=== PATIENT | female | born 1960 | race Caucasian/White ===

== ENCOUNTER → 2017-09-03 | Outpatient (CLI) | payer OTHER ==
[~2017-09-03] MED LIST: LEVO25TA2 PO; PARO7.5C PO; THYR15TA PO; THYR30TA PO
[2017-09-03 13:48] LABS: BASOPHILS # (AUTO) 0.02 x10^3/uL (0-0.1); BASOPHILS % (AUTO) 0 % (0-1); EOSINOPHILS % (AUTO) 3 % (1-7); LYMPHOCYTES # (AUTO) 2.67 x10^3/uL (1-3.4); LYMPHOCYTES % (AUTO) 39 % (22-44); MD NO; MEAN CORPUSCULAR HEMOGLOBIN 30.1 pg (27.0-34.8); MEAN CORPUSCULAR HGB CONC 34.8 g/dL (32.4-35.8); MEAN CORPUSCULAR VOLUME 86.7 fL (80-100); MEAN PLATELET VOLUME 8.3 fL (7.4-10.4); MONOCYTES # (AUTO) 0.52 x10^3/uL (0.2-0.8); MONOCYTES % (AUTO) 8 % (2-9); NEUTROPHILS # (AUTO) 3.38 x10^3/uL (1.8-6.8); NEUTROPHILS % (AUTO) 50 % (42-75); PLATELET COUNT 351 x10^3/uL (130-400); RED BLOOD COUNT 5.26 x10^6/uL (3.82-5.3); RED CELL DISTRIBUTION WIDTH 12.9 % (9.6-15.2)
[2017-09-03 13:59] LABS: ANION GAP 10 mmol/L (5-15); CALCIUM 8.3 mg/dL (8.5-10.1); CHLORIDE 106 mmol/L (98-107)
[2017-09-03 14:00] LABS: CREATININE 0.94 mg/dL (0.55-1.02)
== END | disposition home or self-care (01) ==
LOC: STAR 12:49
PROVIDERS: ATTEND Otolaryngology Facial Plastic Surgery
DX: Z01.818 Encounter for other preprocedural examination (principal); R22.9 Localized swelling, mass and lump, unspecified
CPT/HCPCS: 36415; 71046; 80048; 85025; 93005

== ENCOUNTER 2017-09-07 05:33 | Day surgery (SDC) | payer OTHER ==
[~2017-09-07] VITALS: Ht 160 cm; Wt 68.8 kg
[2017-09-07] MEDS ORDERED: LACTATED RINGERS 1,000 ML IV SCH (06:05)
[2017-09-07] MEDS ORDERED: EPINEPHRINE TOPICAL SOLN 1 MG/ML, 30ML ONE (06:12)
[2017-09-07] MEDS ORDERED: LIDOCAINE GEL 2%, 5ML ONE (06:12)
[2017-09-07] MEDS ORDERED: FENTANYL PF 100 MCG/2ML ONE ×2 (07:05→08:52)
[2017-09-07] MEDS ORDERED: MIDAZOLAM 1 MG/ML, 2ML ONE (07:05)
[2017-09-07] MEDS ORDERED: SCOPOLAMINE PATCH, 1.5MG PATCH.TD72 TD ONE ×2 (07:22)
[2017-09-07] MEDS ORDERED: PROPOFOL 50 ML ONE (07:27)
[2017-09-07] MEDS ORDERED: ROCURONIUM 10 MG/ML,10ML ONE (07:41)
[2017-09-07] MEDS ORDERED: SUCCINYLCHOLINE 20 MG/ML, 10ML ONE (07:41)
[2017-09-07] MEDS ORDERED: KETOROLAC 30 MG/1 ML ONE (07:41)
[2017-09-07] MEDS ORDERED: DEXAMETHASONE 4 MG/ML, 1ML ONE (07:41)
[2017-09-07] MEDS ORDERED: PROPOFOL 10 MG/ML, 20ML ONE (07:41)
[2017-09-07] MEDS ORDERED: ONDANSETRON 2MG/ML, 2ML ONE (07:41)
[2017-09-07] MEDS ORDERED: LABETALOL 5MG/ML, 20ML IV PRN (08:00)
[2017-09-07] MEDS ORDERED: METOPROLOL 1 MG/ML, 5ML IV PRN (08:00)
[2017-09-07] MEDS ORDERED: OXYcodone 5 MG/5 ML ORAL.SOL UDC PO PRN (08:00)
[2017-09-07] MEDS ORDERED: MEPERIDINE/PF 25MG/0.5ML IVPush PRN (08:00)
[2017-09-07] MEDS ORDERED: PROMETHAZINE 25 MG/ML, 1ML IV PRN (08:00)
[2017-09-07] MEDS ORDERED: hydrALAzine 20 MG/ML, 1ML IV PRN (08:00)
[2017-09-07] MEDS ORDERED: EPHEDRINE 50 MG/ML, 1ML IVPush PRN (08:00)
[2017-09-07] MEDS ORDERED: DIAZEPAM 5 MG/ML, 2ML IVPush PRN (08:00)
[2017-09-07] MEDS ORDERED: ACETAMINOPHEN 325 MG TABLET PO PRN (08:00)
[2017-09-07] MEDS ORDERED: ALBUTEROL SULFATE 2.5 MG/3 ML NPPB PRN (08:00)
[2017-09-07] MEDS ORDERED: ONDANSETRON 2MG/ML, 2ML IVPush PRN (08:00)
[2017-09-07] MEDS ORDERED: MIDAZOLAM 1 MG/ML, 2ML IV PRN (08:00)
[2017-09-07] MEDS ORDERED: HYDROcodone/APAP 7.5-325MG/15ML UDC PO PRN (08:00)
[2017-09-07] MEDS ORDERED: HYDROmorphone 1 MG/ML, 1ML IV PRN (08:00)
[2017-09-07] MEDS ORDERED: ACETAMINOPHEN 650 MG/20.3 ML UDC ONE (08:52)
[2017-09-07] MEDS ORDERED: OXYcodone 5 MG/5 ML ORAL.SOL UDC ONE (08:53)
[2017-09-07] MEDS: FENTANYL PF 100 MCG/2ML IV PRN ×3 (08:58→09:14)
== END 2017-09-07 11:40 ==
LOC: OUT 05:33
PROVIDERS: ATTEND Otolaryngology Facial Plastic Surgery
DX: K14.9 Disease of tongue, unspecified (principal); K21.9 Gastro-esophageal reflux disease without esophagitis; E03.9 Hypothyroidism, unspecified; Z88.8 Allergy status to other drugs, medicaments and biological substances; Z85.850 Personal history of malignant neoplasm of thyroid
CPT/HCPCS: 31536; 88305; 88331; J0330; J1100; J1885; J2250; J2405; J2704; J3010; J7120

== ENCOUNTER → 2018-05-07 | Outpatient (CLI) | payer OTHER ==
[~2018-05-07] MED LIST changes: +OMNIPAQUE 350 MG/ML, 100ML BOTTLE ONE
== END | disposition home or self-care (01) ==
LOC: CFH 09:21
PROVIDERS: ATTEND Otolaryngology Facial Plastic Surgery
DX: R59.0 Localized enlarged lymph nodes (principal); J34.1 Cyst and mucocele of nose and nasal sinus; J35.1 Hypertrophy of tonsils; Z85.850 Personal history of malignant neoplasm of thyroid
CPT/HCPCS: 70491; Q9967

== ENCOUNTER 2021-03-12 16:31 | Emergency (ER) | payer SELFPAY ==
[~2021-03-12] VITALS: Ht 162.6 cm; Wt 72.6 kg
[~2021-03-12 16:31] MED LIST changes: -OMNIPAQUE 350 MG/ML, 100ML BOTTLE ONE
--- NOTE | 2021-03-12 18:16 | NUR ---
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
--- NOTE | 2021-03-12 18:34 | NUR ---
PT SENT FROM OBGYN OFFICE. PT HAS BEEN HAVING LLQ ABD PAIN X 2 WEEKS. "IT COMES AND GOES". PT WAS SENT TO RULE OUT POSSIBLE DIVERTICULITIS. PT RESTING IN [facility]. PROVIDED UA. BLANKET PROVIDED
[2021-03-12] MEDS ORDERED: SODIUM CHLORIDE 0.9% 1,000ML IVBOLUS ONE (19:00)
[2021-03-12] MEDS ORDERED: SODIUM CHLORIDE FLUSH 10ML SYR IVF ONE (19:00)
--- NOTE | 2021-03-12 19:17 | NUR ---
PIV PLACED, LABS DRAWN AND SENT WITH LAB SLIP. UA COLLECTED AND SENT. IVF RUNNING. PT CONNECTED TO MONITORING. CALL LIGHT IN REACH.
[2021-03-12 19:20] LABS: BASOPHILS % (AUTO) 1 % (0-1); EOSINOPHILS % (AUTO) 3 % (1-7); LYMPHOCYTES % (AUTO) 29 % (22-44); MEAN CORPUSCULAR HEMOGLOBIN 30.1 pg (27.0-34.8); MEAN CORPUSCULAR HGB CONC 34.2 g/dL (32.4-35.8); MEAN PLATELET VOLUME 8.2 fL (7.4-10.4); MONOCYTES % (AUTO) 6 % (2-9); NEUTROPHILS % (AUTO) 62 % (42-75); PLATELET COUNT 377 x10^3/uL (130-400); RED BLOOD COUNT 5.26 x10^6/uL (3.82-5.3); RED CELL DISTRIBUTION WIDTH 13.1 % (9.6-15.2)
[2021-03-12 19:27] LABS: MICROSCOPIC AUTO
[2021-03-12 19:33] LABS: ALANINE AMINOTRANSFERASE 51 U/L (12-78); ANION GAP 3 mmol/L (5-15); CALCIUM 9.4 mg/dL (8.5-10.1); CHLORIDE 106 mmol/L (98-107); CREATININE 1.01 mg/dL (0.55-1.02)
[2021-03-12 19:35] LABS: ALKALINE PHOSPHATASE 113 U/L (45-117); BILIRUBIN,TOTAL 0.4 mg/dL (0.2-1.0); TOTAL PROTEIN 7.9 g/dL (6.4-8.2)
[2021-03-12 20:00] VITALS: BP 109/68
[2021-03-12] MEDS ORDERED: CEFTRIAXONE 1,000 MG in DEXTROSE 5% 50 ML IVPB ONE (20:00)
--- NOTE | 2021-03-12 20:07 | NUR ---
PT GOING TO CT
[2021-03-12] MEDS ORDERED: OMNIPAQUE 350 MG/ML, 100ML BOTTLE ONE (20:30)
--- NOTE | 2021-03-12 20:36 | NUR ---
PT BACK FROM CT. IVF ABX STARTED PER OCT. ERMD DOES NOT NEED TWO SETS BLOOD CX. 1 SET DRAWN PRIOR TO ABX ADMIN.
--- NOTE | 2021-03-12 20:47 | NUR ---
ALL RESULTS ARE BACK AT THIS TIME. CHART UP FOR RECHECK.
== END 2021-03-12 21:28 | disposition home or self-care (01) ==
LOC: ED 20:30
DX: N30.00 Acute cystitis without hematuria (principal); R10.31 Right lower quadrant pain; R19.7 Diarrhea, unspecified
CPT/HCPCS: 36415; 74177; 80053; 81001; 83605; 85025; 87040; 87086; 96361; 96374; 99285; J0696; J7030; Q9967